=== PATIENT | female | born 1960 | race Caucasian/White ===

== ENCOUNTER 2017-05-03 09:22 | Inpatient (IN) | payer BC ==
[2017-05-03] MEDS ORDERED: REFLEX: PROVENTIL NEB & PulmiCORT NEB~ NEB SCH (10:59)
[2017-05-03 11:42] VITALS: BMI 23.6
[2017-05-03] MEDS ORDERED: PREVNAR 13 IM ONE (11:42)
[2017-05-03] MEDS ORDERED: FLUVIRIN IM ONE (11:42)
[2017-05-03 11:47] LABS: BASOPHILS # (AUTO) 0.1 X10^3/uL (0.0-0.1); BASOPHILS % (AUTO) 0.6 % (0.2-1.0); EOSINOPHILS # (AUTO) 0.1 x10^3/uL (0.0-0.2); EOSINOPHILS % (AUTO) 0.7 % (0.9-2.9); HEMOGLOBIN 13.1 g/dL (12.0-16.0); LYMPHOCYTES # (AUTO) 2.5 X10^3/uL (1.3-2.9); LYMPHOCYTES % (AUTO) 19.6 % (21.0-51.0); MEAN CORPUSCULAR HEMOGLOBIN 30.3 pg (27.0-34.0); MEAN CORPUSCULAR HGB CONC 34.5 g/dL (33.0-35.0); MEAN CORPUSCULAR VOLUME 87.7 fL (80.0-100.0); MEAN PLATELET VOLUME 9.8 fL (7.4-11.0); MONOCYTES # (AUTO) 0.8 x10^3/uL (0.3-0.8); MONOCYTES % (AUTO) 5.8 % (0.0-13.0); NEUTROPHILS # (AUTO) 9.5 x10^3/uL (2.2-4.8); NEUTROPHILS % (AUTO) 73.3 % (42.0-75.0); PLATELET COUNT 230 X10^3/uL (150.0-450.0); RED BLOOD COUNT 4.34 X10^6/uL (3.5-5.4); WHITE BLOOD COUNT 12.9 X10^3/uL (3.6-10.0)
[2017-05-03] MEDS ORDERED: NS 250 ML IV 250 ML IV ONE (12:02)
[2017-05-03] MEDS ORDERED: NS 100 ML IV + SPIKE MINIBAG* 100 ML IV ONE ×3 (12:03→21:08)
[2017-05-03] MEDS: LEVAQUIN PREMIX IV 500 MG 500 MG/100 ML BAG IV SCH (12:05)
[2017-05-03] MEDS: ROBITUSSIN DM PO SCH ×3 (12:05→20:32)
[2017-05-03] MEDS ORDERED: SALINE 3% 15 ML NEB TX ONE (12:06)
[2017-05-03] MEDS: TAMIFLU PO SCH ×2 (12:06→20:32)
[2017-05-03] MEDS: SOLU-Medrol 40 MG VIAL IVP SCH ×3 (12:06→21:25)
[2017-05-03 12:09] LABS: ALANINE AMINOTRANSFERASE 30 Units/L (12-78); ALBUMIN 4.4 g/dL (3.4-5.0); ALKALINE PHOSPHATASE 70 Units/L (46-116); ASPARTATE AMINO TRANSFERASE 33 Units/L (15-37); BLOOD UREA NITROGEN 9 mg/dL (7-18); CARBON DIOXIDE 26.2 mmol/L (21-32); CHLORIDE 103 mmol/L (98-107); SODIUM 140 mmol/L (136-145); TOTAL PROTEIN 8.4 g/dL (6.4-8.2); eGFR BLACK RACES > 60 (>60); eGFR NON BLACK RACES > 60 (>60)
[2017-05-03] MEDS ORDERED: SALINE 3% 15 ML NEB TX NEB ONE (12:15)
[2017-05-03] MEDS: DUONEB 0.5 MG/3 MG NEB SCH ×5 (12:19→20:37)
[2017-05-03] MEDS: ZOSYN VIAL 4.5 GM IV SCH ×3 (13:37→22:36)
[2017-05-03] MEDS ORDERED: XANAX PO PRN (20:35)
[2017-05-03] MEDS: PULMICORT NEB TX 0.5 MG NEB SCH (20:37)
[2017-05-03] MEDS: TUSSIONEX PENNKINETIC SUSP PO PRN (23:43)
[2017-05-04] MEDS ORDERED: NS 100 ML IV + SPIKE MINIBAG* 100 ML IV ONE ×2 (05:00→21:31)
[2017-05-04] MEDS: ZOSYN VIAL 4.5 GM IV SCH ×3 (05:26→21:56)
[2017-05-04 05:35] LABS: BASOPHILS % (AUTO) 0.2 % (0.2-1.0); HEMATOCRIT 35.4 % (36.0-47.0); HEMOGLOBIN 12.2 g/dL (12.0-16.0); LYMPHOCYTES # (AUTO) 1.2 X10^3/uL (1.3-2.9); LYMPHOCYTES % (AUTO) 6.2 % (21.0-51.0); MEAN CORPUSCULAR HEMOGLOBIN 30.2 pg (27.0-34.0); MEAN CORPUSCULAR HGB CONC 34.4 g/dL (33.0-35.0); MEAN CORPUSCULAR VOLUME 87.8 fL (80.0-100.0); MONOCYTES # (AUTO) 0.6 x10^3/uL (0.3-0.8); MONOCYTES % (AUTO) 3.1 % (0.0-13.0); NEUTROPHILS % (AUTO) 90.5 % (42.0-75.0); PLATELET COUNT 251 X10^3/uL (150.0-450.0); RED BLOOD COUNT 4.03 X10^6/uL (3.5-5.4); WHITE BLOOD COUNT 19.9 X10^3/uL (3.6-10.0)
[2017-05-04 05:55] LABS: ALANINE AMINOTRANSFERASE 39 Units/L (12-78); ALBUMIN 3.7 g/dL (3.4-5.0); ALKALINE PHOSPHATASE 62 Units/L (46-116); ASPARTATE AMINO TRANSFERASE 43 Units/L (15-37); BLOOD UREA NITROGEN 11 mg/dL (7-18); CALCIUM 8.9 mg/dL (8.5-10.1); CARBON DIOXIDE 23.3 mmol/L (21-32); CHLORIDE 105 mmol/L (98-107); COR NA(FOR HYPERGLY) 141 mmol/L (136-145); CREATININE 0.96 mg/dL (0.55-1.02); SODIUM 140 mmol/L (136-145); TOTAL PROTEIN 7.4 g/dL (6.4-8.2); eGFR BLACK RACES > 60 (>60); eGFR NON BLACK RACES > 60 (>60)
[2017-05-04 06:42] LABS: BAND NEUTROPHILS % 6 % (0-10); PLATELET MORPHOLOGY COMMENT NORMAL (NORMAL)
[2017-05-04] MEDS: TAMIFLU PO SCH ×2 (08:09→21:56)
[2017-05-04] MEDS: LEVAQUIN PREMIX IV 500 MG 500 MG/100 ML BAG IV SCH (08:09)
[2017-05-04] MEDS: ROBITUSSIN DM PO SCH ×4 (08:10→21:56)
[2017-05-04] MEDS: PULMICORT NEB TX 0.5 MG NEB SCH ×2 (08:32→20:44)
[2017-05-04] MEDS: DUONEB 0.5 MG/3 MG NEB SCH ×4 (08:32→20:44)
[2017-05-04] MEDS: NS 1000 ML 1,000 ML IV SCH ×2 (12:07→21:28)
[2017-05-04] MEDS: TUSSIONEX PENNKINETIC SUSP PO PRN (12:08)
[2017-05-04] MEDS ORDERED: NS 100 ML IV 100 ML IV ONE (13:40)
[2017-05-04] MEDS ORDERED: ZOCOR TAB 20 MG PO SCH (15:00)
[2017-05-04] MEDS: PriLOSEC PO SCH (15:31)
--- NOTE | 2017-05-04 21:10 | DR.UPDATE ---
H&P Update History and Physical Update: WAS SEEN IN THE OFFICE ON 05/03/17. A H&P WAS COMPLETED PRIOR TO ADMISSION. PATIENT HAS BEEN SEEN AND EXAMINED WITH NO CHANGES NOTED TO H&P. Changes noted: NO Yes with the following:
[2017-05-04] MEDS: ZOCOR TAB 20 MG PO SCH (21:56)
[2017-05-04] MEDS: XANAX PO PRN (21:57)
[2017-05-05] MEDS: TUSSIONEX PENNKINETIC SUSP PO PRN ×3 (00:15→20:41)
[2017-05-05] MEDS ORDERED: NS 100 ML IV + SPIKE MINIBAG* 100 ML IV ONE ×3 (05:02→20:47)
[2017-05-05 06:18] LABS: BASOPHILS % (AUTO) 0.1 % (0.2-1.0); EOSINOPHILS % (AUTO) 0.1 % (0.9-2.9); HEMATOCRIT 30.9 % (36.0-47.0); HEMOGLOBIN 10.7 g/dL (12.0-16.0); LYMPHOCYTES # (AUTO) 3.9 X10^3/uL (1.3-2.9); LYMPHOCYTES % (AUTO) 18.6 % (21.0-51.0); MEAN CORPUSCULAR HEMOGLOBIN 30.8 pg (27.0-34.0); MEAN CORPUSCULAR HGB CONC 34.6 g/dL (33.0-35.0); MEAN CORPUSCULAR VOLUME 88.9 fL (80.0-100.0); MEAN PLATELET VOLUME 9.9 fL (7.4-11.0); MONOCYTES % (AUTO) 4.6 % (0.0-13.0); NEUTROPHILS # (AUTO) 16.1 x10^3/uL (2.2-4.8); NEUTROPHILS % (AUTO) 76.6 % (42.0-75.0); PLATELET COUNT 224 X10^3/uL (150.0-450.0); RED BLOOD COUNT 3.47 X10^6/uL (3.5-5.4); RED CELL DISTRIBUTION WIDTH 13.6 % (11.6-16.5)
[2017-05-05 06:19] LABS: ALANINE AMINOTRANSFERASE 37 Units/L (12-78); ALBUMIN 3.1 g/dL (3.4-5.0); ALKALINE PHOSPHATASE 57 Units/L (46-116); ASPARTATE AMINO TRANSFERASE 34 Units/L (15-37); BLOOD UREA NITROGEN 14 mg/dL (7-18); CALCIUM 8.1 mg/dL (8.5-10.1); CARBON DIOXIDE 25.1 mmol/L (21-32); CHLORIDE 109 mmol/L (98-107); COR CA(FOR HYPOALB) 8.8 mg/dL (8.5-10.1); COR NA(FOR HYPERGLY) 142 mmol/L (136-145); SODIUM 142 mmol/L (136-145); TOTAL PROTEIN 6.4 g/dL (6.4-8.2); eGFR BLACK RACES > 60 (>60); eGFR NON BLACK RACES > 60 (>60)
[2017-05-05] MEDS: NS 1000 ML 1,000 ML IV SCH ×3 (06:36→21:44)
[2017-05-05] MEDS: ZOSYN VIAL 4.5 GM IV SCH ×3 (06:36→21:13)
[2017-05-05 06:39] LABS: WHITE BLOOD COUNT 20.9 X10^3/uL (3.6-10.0)
[2017-05-05 06:53] LABS: BAND NEUTROPHILS % 2 % (0-10); PLATELET MORPHOLOGY COMMENT NORMAL (NORMAL)
[2017-05-05] MEDS ORDERED: POTASSIUM CHLORIDE LIQ 20 MEQ UDC PO PRN (07:41)
[2017-05-05] MEDS ORDERED: K-DUR TAB 20 MEQ PO PRN (07:41)
[2017-05-05] MEDS ORDERED: K-RIDER 10 MEQ/NS 100 ML 10 MEQ/100 ML BAG IV PRN (07:41)
[2017-05-05] MEDS ORDERED: K-LYTE EFFERVESCENT PO PRN (07:41)
[2017-05-05] MEDS: PULMICORT NEB TX 0.5 MG NEB SCH ×2 (09:03→20:25)
[2017-05-05] MEDS: DUONEB 0.5 MG/3 MG NEB SCH ×4 (09:03→20:25)
[2017-05-05] MEDS: ASPIRIN EC 81 MG PO SCH (09:52)
[2017-05-05] MEDS: ZESTRIL TAB 10 MG PO SCH (09:52)
[2017-05-05] MEDS: TAMIFLU PO SCH ×2 (09:52→20:40)
[2017-05-05] MEDS: PriLOSEC PO SCH (09:53)
[2017-05-05] MEDS: ROBITUSSIN DM PO SCH ×4 (09:53→20:40)
[2017-05-05] MEDS: LEVAQUIN PREMIX IV 500 MG 500 MG/100 ML BAG IV SCH (09:53)
[2017-05-05] MEDS ORDERED: NS 100 ML IV 100 ML IV ONE (09:54)
[2017-05-05] MEDS: TORADOL 30 MG VIAL IVP SCH ×3 (10:18→21:12)
--- NOTE | 2017-05-05 10:21 | PCM.PROG ---
Progress Note - Progress Note for Day of Date: 05/04/17 ( ) - Subjective Subjective: WAS ADMITTED FOR BRONCHOPNEUMONIA. PATIENT HAS BEEN ON ANTIBIOTICS FOR THE PAST SEVERAL DAYS TO TREAT FOR PNEUMONIA AND INFLUENZA. TODAY, SHE IS ALERT AND ORIENTED, SITTING UP IN BED ON MORNING ROUNDS. PATIENT S IS AT BEDSIDE. SHE CONTINUES WITH COMPLAINTS OF COUGH AND SHORTNESS OF BREATH. SHE ALSO REPORTS SYMPTOMS OF WEAKNESS, AND ACHING ALL OVER. CLEAR, THIN SPUTUM IS NOTED AT BEDSIDE. SHE IS NOTED WEARING OXYGEN AT 2L/MIN. ON EXAMINATION, LUNGS ARE NOTED WITH WHEEZING AND RHONCHI BILATERALLY TO AUSCULTATION. ABDOMEN IS SOFT, ROUND, AND NON-TENDER WITH NORMAL BOWEL SOUNDS NOTED IN ALL QUADRANTS. HER VITAL SIGNS THIS MORNING ARE 98.0-81-81-91%-133/63. A CBC, CMP, AND CHEST XRAY WERE OBTAINED TODAY. ABNORMAL LABS INCLUDE THE FOLLOWING: WBC 19.9, HCT 35.4, GLUCOSE 148, AST 43, ALBUMIN 1.0. CHEST XRAY REPORTS CENTRAL BRONCHITIS, NO LOBAR PNEUMONIA OR PLEAURAL EFFUSION SEEN. BLOOD CULTURES AND SPUTUM CULTURES ARE PENDING. TODAY, WE WILL CONTINUE WITH CURRENT PLAN OF CARE. WE PLAN TO FOLLOW UP WITH AM LABS AND CONTINUE TO MONITOR PATIENT. - Past Medical Family Social History Past Med/Fam/Surg Hx: No changes since H&P Allergies: Allergies No Known Drug Allergies [NKDA] Allergy (Verified 05/03/17 12:39) - Review of Systems ROS: No change since H&P - Vital Signs and I&O's Vital Signs: Temperature 98.0 F Pulse Rate [Right Brachial] 88 Pulse Rate 88 Respiratory Rate 23 Blood Pressure [Left Arm] 120/58 Blood Pressure [Right Arm] 147/65 Blood Pressure 120/58 O2 Sat by Pulse Oximetry 96 Intake and Output: Intake & Output 05/02/17 05/03/17 05/04/17 05/05/17 11:59 11:59 11:59 11:59 Intake Total 2077 273 Balance 2077 273 - Physical Exam Oriented: Normal Eyes: Normal Ear: Normal Nose: Normal Throat: Normal Respiratory: Generalized, Wheezes, Rhonchi Cardiovascular: Normal : Normal Auscultation: Bowel Sounds: Normal Palpation: Normal Tenderness: Normal Skin: Normal Musculoskeletal: Normal Psychiatric: Normal Mood Description: Calm Affect: Normal Speech Pattern: Clear, Appropriate - Laboratory and Diagnostics Result Diagrams: 05/07/17 05:40 05/07/17 05:40 Labs: 05/03/17 12:38 Sputum - Expectorated Sputum Sputum Culture - Final 05/03/17 12:38 Sputum - Expectorated Sputum - Final Laboratory WBC 20.9 X10^3/uL (3.6-10.0) H* 05/05/17 05:00 RBC 3.47 X10^6/uL (3.5-5.4) L 05/05/17 05:00 Hgb 10.7 g/dL (12.0-16.0) L 05/05/17 05:00 Hct 30.9 % (36.0-47.0) L 05/05/17 05:00 MCV 88.9 fL (80.0-100.0) 05/05/17 05:00 MCH 30.8 pg (27.0-34.0) 05/05/17 05:00 MCHC 34.6 g/dL (33.0-35.0) 05/05/17 05:00 RDW 13.6 % (11.6-16.5) 05/05/17 05:00 Plt Count 224 X10^3/uL (150.0-450.0) 05/05/17 05:00 Plt Count Comment Adequate (ADEQUATE) 05/05/17 05:00 MPV 9.9 fL (7.4-11.0) 05/05/17 05:00 Neut % 76.6 % (42.0-75.0) H 05/05/17 05:00 Lymph % 18.6 % (21.0-51.0) L 05/05/17 05:00 [place] % 4.6 % (0.0-13.0) 05/05/17 05:00 Eos % 0.1 % (0.9-2.9) L 05/05/17 05:00 Baso % 0.1 % (0.2-1.0) L 05/05/17 05:00 Neut # 16.1 x10^3/uL (2.2-4.8) H 05/05/17 05:00 Lymph # 3.9 X10^3/uL (1.3-2.9) H 05/05/17 05:00 [place] # 1.0 x10^3/uL (0.3-0.8) H 05/05/17 05:00 Eos # 0.0 x10^3/uL (0.0-0.2) 05/05/17 05:00 Baso # 0.0 X10^3/uL (0.0-0.1) 05/05/17 05:00 Absolute Nucleated RBC 0.0 /100WBC 05/05/17 05:00 Total Counted 100 05/05/17 05:00 Neutrophils % (Manual) 66 % (39-76) 05/05/17 05:00 Band Neutrophils % 2 % (0-10) 05/05/17 05:00 Lymphocytes % (Manual) 20 % (13-43) 05/05/17 05:00 Monocytes % (Manual) 8 % (4-9) 05/05/17 05:00 Eosinophils % (Manual) 4 % (0-6) 05/05/17 05:00 Plt Morphology Comment Normal (NORMAL) 05/05/17 05:00 RBC Morphology Normal (NORMAL) 05/05/17 05:00 Sodium 142 mmol/L (136-145) 05/05/17 05:00 Corrected Sodium 142 mmol/L (136-145) 05/05/17 05:00 Potassium 3.4 mmol/L (3.5-5.1) L 05/05/17 05:00 Chloride 109 mmol/L (98-107) H 05/05/17 05:00 Carbon Dioxide 25.1 mmol/L (21-32) 05/05/17 05:00 BUN 14 mg/dL (7-18) 05/05/17 05:00 Creatinine 0.80 mg/dL (0.55-1.02) 05/05/17 05:00 Est GFR (MDRD) Af Amer > 60 (>60) 05/05/17 05:00 Est GFR (MDRD) Non-Af > 60 (>60) 05/05/17 05:00 Glucose 114 mg/dL (65-99) H 05/05/17 05:00 Calcium 8.1 mg/dL (8.5-10.1) L 05/05/17 05:00 Corrected Calcium 8.8 mg/dL (8.5-10.1) 05/05/17 05:00 Total Bilirubin 0.10 mg/dL (0.2-1.0) L 05/05/17 05:00 AST 34 Units/L (15-37) 05/05/17 05:00 ALT 37 Units/L (12-78) 05/05/17 05:00 Alkaline Phosphatase 57 Units/L (46-116) 05/05/17 05:00 Total Protein 6.4 g/dL (6.4-8.2) 05/05/17 05:00 Albumin 3.1 g/dL (3.4-5.0) L 05/05/17 05:00 Globulin 3.3 g/dL (2.5-4.5) 05/05/17 05:00 Albumin/Globulin Ratio 0.9 Ratio (1.1-2.1) L 05/05/17 05:00 - Plan (1) Bronchopneumonia Status: Acute Plan: START SOLU-MEDROL 80MG IV Q8H, CONTINUE LEVAQUIN 500MG IV DAILY, CONTINUE ZOSYN 4.5GM IV Q8H, CONTINUE TUSSIONEX, CONTINUE NEB TX, CONTINUE SUPPLEMENTAL OXYGEN, CONTINUE TO MONITOR (2) Anxiety Status: Chronic Plan: CONTINUE XANAX, CONTINUE TO MONITOR (3) GERD (gastroesophageal reflux disease) Status: Chronic Qualifiers: Esophagitis presence: esophagitis presence not specified Qualified Code(s) : K21.9 - Gastro-esophageal reflux disease without esophagitis Plan: CONTINUE PRILOSEC, CONTINUE TO MONITOR (4) Hyperlipidemia Status: Chronic Qualifiers: Hyperlipidemia type: mixed hyperlipidemia Qualified Code(s): E78.2 - Mixed hyperlipidemia Plan: CONTINUE ZOCOR, CONTINUE TO MONITOR (5) Hypertension Status: Chronic Qualifiers: Hypertension type: essential hypertension Qualified Code(s): I10 - Essential (primary) hypertension Plan: CONTINUE LISINOPRIL, CONTINUE TO MONITOR
[2017-05-05] MEDS: ZOCOR TAB 20 MG PO SCH (20:40)
[2017-05-05] MEDS: XANAX PO PRN (20:41)
[2017-05-06] MEDS ORDERED: NS 100 ML IV + SPIKE MINIBAG* 100 ML IV ONE ×3 (03:15→19:42)
[2017-05-06] MEDS: NS 1000 ML 1,000 ML IV SCH ×4 (03:34→21:15)
[2017-05-06] MEDS: TORADOL 30 MG VIAL IVP SCH ×4 (03:35→21:15)
[2017-05-06] MEDS: ZOSYN VIAL 4.5 GM IV SCH ×3 (06:02→21:15)
[2017-05-06 06:05] LABS: BASOPHILS # (AUTO) 0.1 X10^3/uL (0.0-0.1); BASOPHILS % (AUTO) 0.4 % (0.2-1.0); EOSINOPHILS # (AUTO) 0.2 x10^3/uL (0.0-0.2); EOSINOPHILS % (AUTO) 1.6 % (0.9-2.9); HEMATOCRIT 31.3 % (36.0-47.0); HEMOGLOBIN 10.8 g/dL (12.0-16.0); LYMPHOCYTES # (AUTO) 4.3 X10^3/uL (1.3-2.9); LYMPHOCYTES % (AUTO) 29.5 % (21.0-51.0); MEAN CORPUSCULAR HEMOGLOBIN 30.5 pg (27.0-34.0); MEAN CORPUSCULAR HGB CONC 34.6 g/dL (33.0-35.0); MEAN CORPUSCULAR VOLUME 88.2 fL (80.0-100.0); MEAN PLATELET VOLUME 9.5 fL (7.4-11.0); MONOCYTES # (AUTO) 0.8 x10^3/uL (0.3-0.8); MONOCYTES % (AUTO) 5.6 % (0.0-13.0); NEUTROPHILS # (AUTO) 9.2 x10^3/uL (2.2-4.8); NEUTROPHILS % (AUTO) 62.9 % (42.0-75.0); PLATELET COUNT 242 X10^3/uL (150.0-450.0); RED BLOOD COUNT 3.55 X10^6/uL (3.5-5.4); RED CELL DISTRIBUTION WIDTH 13.7 % (11.6-16.5); WHITE BLOOD COUNT 14.6 X10^3/uL (3.6-10.0)
[2017-05-06 06:15] LABS: ALANINE AMINOTRANSFERASE 41 Units/L (12-78); ALBUMIN 3.1 g/dL (3.4-5.0); ALKALINE PHOSPHATASE 49 Units/L (46-116); ASPARTATE AMINO TRANSFERASE 38 Units/L (15-37); BLOOD UREA NITROGEN 11 mg/dL (7-18); CALCIUM 8.3 mg/dL (8.5-10.1); CARBON DIOXIDE 29.3 mmol/L (21-32); CHLORIDE 107 mmol/L (98-107); CREATININE 0.84 mg/dL (0.55-1.02); SODIUM 142 mmol/L (136-145); TOTAL PROTEIN 6.5 g/dL (6.4-8.2); eGFR BLACK RACES > 60 (>60); eGFR NON BLACK RACES > 60 (>60)
[2017-05-06] MEDS: DUONEB 0.5 MG/3 MG NEB SCH ×4 (08:59→20:08)
[2017-05-06] MEDS: PULMICORT NEB TX 0.5 MG NEB SCH ×2 (08:59→20:08)
[2017-05-06] MEDS: ASPIRIN EC 81 MG PO SCH (09:14)
[2017-05-06] MEDS: ZESTRIL TAB 10 MG PO SCH (09:15)
[2017-05-06] MEDS: PriLOSEC PO SCH (09:15)
[2017-05-06] MEDS: LEVAQUIN PREMIX IV 500 MG 500 MG/100 ML BAG IV SCH (09:15)
[2017-05-06] MEDS: ROBITUSSIN DM PO SCH ×4 (09:15→21:14)
[2017-05-06] MEDS: TAMIFLU PO SCH ×2 (09:15→21:15)
[2017-05-06] MEDS: SOLU-Medrol 40 MG VIAL IVP SCH ×3 (09:21→21:15)
[2017-05-06] MEDS: TUSSIONEX PENNKINETIC SUSP PO PRN (12:56)
[2017-05-06] MEDS: ZOCOR TAB 20 MG PO SCH (21:15)
[2017-05-06] MEDS: XANAX PO PRN (21:16)
--- NOTE | 2017-05-06 22:00 | PCM.PROG ---
Progress Note - Progress Note for Day of Date: 05/05/17 - Subjective Subjective: WAS ADMITTED FOR BRONCHOPNEUMONIA. TODAY, SHE IS ALERT AND ORIENTED, SITTING UP IN BED ON MORNING ROUNDS. PATIENTS IS AT BEDSIDE. SHE CONTINUES WITH COMPLAINTS OF COUGH AND SHORTNESS OF BREATH. SHE IS ALSO NOTED WITH COMPLAINTS OF CHEST AND RIB PAIN WHEN COUGHING. PATIENT REPORTS THAT WHEN SHE COUGHS, SHE HAS A STABBING SENSATION TO THE CHEST AND RIBS. SHE IS NOTED WEARING OXYGEN AT 2L/MIN. SHE IS ALSO NOTED ON TELEMETRY. SINUS RHYTHM NOTED WITH HEART RATE IN THE 80S. ON EXAMINATION, LUNGS CONTINUE WITH WHEEZING AND RHONCHI BILATERALLY TO AUSCULTATION. ABDOMEN IS SOFT, ROUND, AND NON-TENDER WITH NORMAL BOWEL SOUNDS NOTED IN ALL QUADRANTS. HER VITAL SIGNS THIS MORNING ARE 98.0-86-30-97%-135/63. A CBC, CMP, AND CHEST XRAY WERE OBTAINED TODAY. ABNORMAL LABS INCLUDE THE FOLLOWING: WBC CRITICAL HIGH 20.9, RBC 3.47, HGB 10.7 , HCT 30.9, POTASSIUM 3.4, GLUCOSE 114, CALCIUM 8.1, ALBUMIN 3.1. CHEST XRAY WAS OBTAINED AND A READING IS PENDING. PRELIMINARY SPUTUM CULTURES REPORT NORMAL MARY. BLOOD CULTURES REPORT NO GROWTH. TODAY, WE WILL OBTAIN A CT OF THE CHEST WITH CONTRAST. WE WILL START TORADOL 30MG IV Q6H AND CONTINUE ANTIBIOTICS TO TREAT PLEURASY. OTHERWISE, WE WILL CONTINUE WITH CURRENT PLAN OF CARE. WE PLAN TO FOLLOW UP WITH AM LABS AND CONTINUE TO MONITOR PATIENT. - Past Medical Family Social History Past Med/Fam/Surg Hx: No changes since H&P Allergies: Allergies No Known Drug Allergies [NKDA] Allergy (Verified 05/03/17 12:39) - Review of Systems ROS: No change since H&P - Vital Signs and I&O's Vital Signs: Temperature 98.1 F Pulse Rate [Right Brachial] 99 Pulse Rate 88 Respiratory Rate 20 Blood Pressure [Left Arm] 120/58 Blood Pressure [Right Arm] 170/72 Blood Pressure 120/58 O2 Sat by Pulse Oximetry 97 Intake and Output: Intake & Output 05/04/17 05/05/17 05/06/17 05/07/17 11:59 11:59 11:59 11:59 Intake Total 2077 2733 2400 1825 Balance 2077 2733 2400 1825 - Physical Exam Oriented: Normal Eyes: Normal Ear: Normal Nose: Normal Throat: Normal Respiratory: Generalized, Wheezes, Rhonchi Cardiovascular: Normal : Normal Auscultation: Bowel Sounds: Normal Palpation: Normal Tenderness: Normal Skin: Normal Musculoskeletal: Normal Psychiatric: Normal Mood Description: Calm Affect: Normal Speech Pattern: Clear, Appropriate - Laboratory and Diagnostics Result Diagrams: 05/07/17 05:40 05/07/17 05:40 Labs: 05/03/17 11:35 Blood Blood Culture - Preliminary 05/03/17 11:20 Blood Blood Culture - Preliminary 05/03/17 12:38 Sputum - Expectorated Sputum Sputum Culture - Final 05/03/17 12:38 Sputum - Expectorated Sputum - Final Laboratory WBC 14.6 X10^3/uL (3.6-10.0) H 05/06/17 05:14 RBC 3.55 X10^6/uL (3.5-5.4) 05/06/17 05:14 Hgb 10.8 g/dL (12.0-16.0) L 05/06/17 05:14 Hct 31.3 % (36.0-47.0) L 05/06/17 05:14 MCV 88.2 fL (80.0-100.0) 05/06/17 05:14 MCH 30.5 pg (27.0-34.0) 05/06/17 05:14 MCHC 34.6 g/dL (33.0-35.0) 05/06/17 05:14 RDW 13.7 % (11.6-16.5) 05/06/17 05:14 Plt Count 242 X10^3/uL (150.0-450.0) 05/06/17 05:14 Plt Count Comment Adequate (ADEQUATE) 05/05/17 05:00 MPV 9.5 fL (7.4-11.0) 05/06/17 05:14 Neut % 62.9 % (42.0-75.0) 05/06/17 05:14 Lymph % 29.5 % (21.0-51.0) 05/06/17 05:14 [place] % 5.6 % (0.0-13.0) 05/06/17 05:14 Eos % 1.6 % (0.9-2.9) 05/06/17 05:14 Baso % 0.4 % (0.2-1.0) 05/06/17 05:14 Neut # 9.2 x10^3/uL (2.2-4.8) H 05/06/17 05:14 Lymph # 4.3 X10^3/uL (1.3-2.9) H 05/06/17 05:14 [place] # 0.8 x10^3/uL (0.3-0.8) 05/06/17 05:14 Eos # 0.2 x10^3/uL (0.0-0.2) 05/06/17 05:14 Baso # 0.1 X10^3/uL (0.0-0.1) 05/06/17 05:14 Absolute Nucleated RBC 0.0 /100WBC 05/06/17 05:14 Total Counted 100 05/05/17 05:00 Neutrophils % (Manual) 66 % (39-76) 05/05/17 05:00 Band Neutrophils % 2 % (0-10) 05/05/17 05:00 Lymphocytes % (Manual) 20 % (13-43) 05/05/17 05:00 Monocytes % (Manual) 8 % (4-9) 05/05/17 05:00 Eosinophils % (Manual) 4 % (0-6) 05/05/17 05:00 Plt Morphology Comment Normal (NORMAL) 05/05/17 05:00 RBC Morphology Normal (NORMAL) 05/05/17 05:00 Sodium 142 mmol/L (136-145) 05/06/17 05:14 Corrected Sodium TNP 05/06/17 05:14 Potassium 4.3 mmol/L (3.5-5.1) 05/06/17 05:14 Chloride 107 mmol/L (98-107) 05/06/17 05:14 Carbon Dioxide 29.3 mmol/L (21-32) 05/06/17 05:14 BUN 11 mg/dL (7-18) 05/06/17 05:14 Creatinine 0.84 mg/dL (0.55-1.02) 05/06/17 05:14 Est GFR (MDRD) Af Amer > 60 (>60) 05/06/17 05:14 Est GFR (MDRD) Non-Af > 60 (>60) 05/06/17 05:14 Glucose 93 mg/dL (65-99) 05/06/17 05:14 Calcium 8.3 mg/dL (8.5-10.1) L 05/06/17 05:14 Corrected Calcium 9.0 mg/dL (8.5-10.1) 05/06/17 05:14 Total Bilirubin 0.20 mg/dL (0.2-1.0) 05/06/17 05:14 AST 38 Units/L (15-37) H 05/06/17 05:14 ALT 41 Units/L (12-78) 05/06/17 05:14 Alkaline Phosphatase 49 Units/L (46-116) 05/06/17 05:14 Total Protein 6.5 g/dL (6.4-8.2) 05/06/17 05:14 Albumin 3.1 g/dL (3.4-5.0) L 05/06/17 05:14 Globulin 3.4 g/dL (2.5-4.5) 05/06/17 05:14 Albumin/Globulin Ratio 0.9 Ratio (1.1-2.1) L 05/06/17 05:14 - Plan (1) Bronchopneumonia Status: Acute Plan: CONTINUE LEVAQUIN 500MG IV DAILY, CONTINUE ZOSYN 4.5GM IV Q8H, CONTINUE TUSSIONEX, CONTINUE NEB TX, CONTINUE SUPPLEMENTAL OXYGEN, CONTINUE TO MONITOR (2) Pleurisy Status: Acute Plan: CONTINUE FORTAZ AND LEVAQUIN IV, TORADOL 30MG IV Q6H, CONTINUE TO MONITOR (3) Anxiety Status: Chronic Plan: CONTINUE XANAX, CONTINUE TO MONITOR (4) GERD (gastroesophageal reflux disease) Status: Chronic Qualifiers: Esophagitis presence: esophagitis presence not specified Qualified Code(s) : K21.9 - Gastro-esophageal reflux disease without esophagitis Plan: CONTINUE PRILOSEC, CONTINUE TO MONITOR (5) Hyperlipidemia Status: Chronic Qualifiers: Hyperlipidemia type: mixed hyperlipidemia Qualified Code(s): E78.2 - Mixed hyperlipidemia Plan: CONTINUE ZOCOR, CONTINUE TO MONITOR (6) Hypertension Status: Chronic Qualifiers: Hypertension type: essential hypertension Qualified Code(s): I10 - Essential (primary) hypertension Plan: CONTINUE LISINOPRIL, CONTINUE TO MONITOR
[2017-05-07] MEDS: TUSSIONEX PENNKINETIC SUSP PO PRN ×2 (01:00→05:04)
[2017-05-07] MEDS: TORADOL 30 MG VIAL IVP SCH ×2 (05:02→06:16)
[2017-05-07] MEDS: NS 1000 ML 1,000 ML IV SCH (05:03)
[2017-05-07] MEDS: ZOSYN VIAL 4.5 GM IV SCH (05:04)
[2017-05-07] MEDS: SOLU-Medrol 40 MG VIAL IVP SCH (05:04)
[2017-05-07] MEDS ORDERED: NS 100 ML IV + SPIKE MINIBAG* 100 ML IV ONE (05:07)
[2017-05-07 06:09] LABS: BASOPHILS % (AUTO) 0.2 % (0.2-1.0); HEMATOCRIT 34.4 % (36.0-47.0); HEMOGLOBIN 11.8 g/dL (12.0-16.0); LYMPHOCYTES # (AUTO) 1.6 X10^3/uL (1.3-2.9); LYMPHOCYTES % (AUTO) 10.9 % (21.0-51.0); MEAN CORPUSCULAR HEMOGLOBIN 30.2 pg (27.0-34.0); MEAN CORPUSCULAR HGB CONC 34.4 g/dL (33.0-35.0); MEAN CORPUSCULAR VOLUME 87.8 fL (80.0-100.0); MEAN PLATELET VOLUME 9.3 fL (7.4-11.0); MONOCYTES # (AUTO) 0.4 x10^3/uL (0.3-0.8); MONOCYTES % (AUTO) 2.9 % (0.0-13.0); NEUTROPHILS # (AUTO) 12.6 x10^3/uL (2.2-4.8); PLATELET COUNT 298 X10^3/uL (150.0-450.0); RED BLOOD COUNT 3.92 X10^6/uL (3.5-5.4); RED CELL DISTRIBUTION WIDTH 14.1 % (11.6-16.5); WHITE BLOOD COUNT 14.6 X10^3/uL (3.6-10.0)
[2017-05-07 06:16] VITALS: BP 160/73
[2017-05-07 06:42] LABS: ALANINE AMINOTRANSFERASE 141 Units/L (12-78); ALBUMIN 3.3 g/dL (3.4-5.0); ALKALINE PHOSPHATASE 71 Units/L (46-116); ASPARTATE AMINO TRANSFERASE 94 Units/L (15-37); BLOOD UREA NITROGEN 14 mg/dL (7-18); CARBON DIOXIDE 27.3 mmol/L (21-32); CHLORIDE 106 mmol/L (98-107); COR CA(FOR HYPOALB) 9.6 mg/dL (8.5-10.1); COR NA(FOR HYPERGLY) 143 mmol/L (136-145); CREATININE 0.72 mg/dL (0.55-1.02); SODIUM 142 mmol/L (136-145); TOTAL PROTEIN 7.1 g/dL (6.4-8.2); eGFR BLACK RACES > 60 (>60); eGFR NON BLACK RACES > 60 (>60)
[2017-05-07] MEDS: DUONEB 0.5 MG/3 MG NEB SCH (09:02)
[2017-05-07] MEDS: PULMICORT NEB TX 0.5 MG NEB SCH (09:02)
[2017-05-07] MEDS: ASPIRIN EC 81 MG PO SCH (09:18)
[2017-05-07] MEDS: LEVAQUIN PREMIX IV 500 MG 500 MG/100 ML BAG IV SCH (09:18)
[2017-05-07] MEDS: ZESTRIL TAB 10 MG PO SCH (09:18)
[2017-05-07] MEDS: TAMIFLU PO SCH (09:18)
[2017-05-07] MEDS: ROBITUSSIN DM PO SCH (09:18)
[2017-05-07] MEDS: PriLOSEC PO SCH (09:18)
--- NOTE | 2017-05-08 11:43 | PCM.PROG ---
Progress Note - Progress Note for Day of Date: 05/06/17 - Subjective Subjective: WAS ADMITTED FOR BRONCHOPNEUMONIA. TODAY, SHE IS ALERT AND ORIENTED, SITTING UP IN BED ON MORNING ROUNDS. PATIENTS IS AT BEDSIDE. SHE CONTINUES WITH COMPLAINTS OF COUGH AND SHORTNESS OF BREATH. SHE REPORTS THAT SHARP PAIN TO BILATERAL RIBS HAS IMPROVED SINCE RECEIVING THE TORADOL. SHE IS NOTED WEARING OXYGEN AT 2L/MIN. SHE IS ON TELEMETRY. SINUS RHYTHM NOTED WITH HEARTRATE IN THE 80S. ON EXAMINATION, LUNGS ARE CONTINUE WITH WHEEZING BILATERALLY TO AUSCULTATION. ABDOMEN IS SOFT, ROUND, AND NON-TENDER WITH NORMAL BOWEL SOUNDS NOTED IN ALL QUADRANTS. HER VITAL SIGNS THIS MORNING ARE 98.3-84-17 -98%-179/79. A CBC AND CMP WERE OBTAINED TODAY. ABNORMAL LABS INCLUDE THE FOLLOWING: WBC 14.6-HGB 10.8, HCT 31.3, CALCIUM 8.3, AST 38, ALBUMIN 3.1. YESTERDAY, WE OBTAINED A CT OF THE CHEST WITH CONTRAST. IT REPORTED BILATERAL PERIBRONCHIAL THICKENING WITH A FEW TREE IN BUD OPACITIES WITH MULTIPLE SCATTERED AREAS OF GROUND-GLASS ALVEOLAR OPACITIES MOST CONSISTENT WITH ACUTE INFECTIOUS/INFLAMMATORY INFILTRATES LIKELY REPRESENTING CELLULAR BRONCHILITIS IN THE SETTING OF AN ATYPICAL/VIRAL PNEUMONIA. SHODDY MEDIASTINAL AND BORDERLINE ENLARGED RIGHT HILAR LYMPH NODES LIKELY REACTIVE TO THE ABOVE DESCRIBED ACUTE INFECTIONS/INFLAMMATORY PROCESS. SPUTUM CULTURES REPORT GROWTH OF NORMAL MARY. BLOOD CULTURES REPORT NO GROWTH. TODAY, WE WILL START SOLU- MEDROL 80MG IV Q8H. OTHERWISE, WE WILL CONTINUE WITH CURRENT PLAN OF CARE. WE PLAN TO FOLLOW UP WITH AM LABS, CHEST XRAY, AND CONTINUE TO MONITOR PATIENT. - Past Medical Family Social History Past Med/Fam/Surg Hx: No changes since H&P Allergies: Allergies No Known Drug Allergies [NKDA] Allergy (Verified 05/03/17 12:39) - Review of Systems ROS: No change since H&P - Vital Signs and I&O's Vital Signs: Temperature 98.4 F Pulse Rate [Right Brachial] 83 Pulse Rate 101 Respiratory Rate 24 Blood Pressure [Left Arm] 120/58 Blood Pressure [Right Arm] 160/73 Blood Pressure 120/58 O2 Sat by Pulse Oximetry 98 Intake and Output: Intake & Output 05/05/17 05/06/17 05/07/17 05/08/17 11:59 11:59 11:59 11:59 Intake Total 2733 2400 3390 Balance 2733 2400 3390 - Physical Exam Oriented: Normal Eyes: Normal Ear: Normal Nose: Normal Throat: Normal Respiratory: Generalized, Wheezes, Rhonchi Cardiovascular: Normal : Normal Auscultation: Bowel Sounds: Normal Palpation: Normal Tenderness: Normal Skin: Normal Musculoskeletal: Normal Psychiatric: Normal Mood Description: Calm Affect: Normal Speech Pattern: Clear, Appropriate - Laboratory and Diagnostics Result Diagrams: 05/07/17 05:40 05/07/17 05:40 Labs: 05/03/17 11:35 Blood Blood Culture - Preliminary 05/03/17 11:20 Blood Blood Culture - Preliminary 05/03/17 12:38 Sputum - Expectorated Sputum Sputum Culture - Final 05/03/17 12:38 Sputum - Expectorated Sputum - Final Laboratory WBC 14.6 X10^3/uL (3.6-10.0) H 05/07/17 05:40 RBC 3.92 X10^6/uL (3.5-5.4) 05/07/17 05:40 Hgb 11.8 g/dL (12.0-16.0) L 05/07/17 05:40 Hct 34.4 % (36.0-47.0) L 05/07/17 05:40 MCV 87.8 fL (80.0-100.0) 05/07/17 05:40 MCH 30.2 pg (27.0-34.0) 05/07/17 05:40 MCHC 34.4 g/dL (33.0-35.0) 05/07/17 05:40 RDW 14.1 % (11.6-16.5) 05/07/17 05:40 Plt Count 298 X10^3/uL (150.0-450.0) 05/07/17 05:40 Plt Count Comment Adequate (ADEQUATE) 05/05/17 05:00 MPV 9.3 fL (7.4-11.0) 05/07/17 05:40 Neut % 86.0 % (42.0-75.0) H 05/07/17 05:40 Lymph % 10.9 % (21.0-51.0) L 05/07/17 05:40 [place] % 2.9 % (0.0-13.0) 05/07/17 05:40 Eos % 0.0 % (0.9-2.9) L 05/07/17 05:40 Baso % 0.2 % (0.2-1.0) 05/07/17 05:40 Neut # 12.6 x10^3/uL (2.2-4.8) H 05/07/17 05:40 Lymph # 1.6 X10^3/uL (1.3-2.9) 05/07/17 05:40 [place] # 0.4 x10^3/uL (0.3-0.8) 05/07/17 05:40 Eos # 0.0 x10^3/uL (0.0-0.2) 05/07/17 05:40 Baso # 0.0 X10^3/uL (0.0-0.1) 05/07/17 05:40 Absolute Nucleated RBC 0.0 /100WBC 05/07/17 05:40 Total Counted 100 05/05/17 05:00 Neutrophils % (Manual) 66 % (39-76) 05/05/17 05:00 Band Neutrophils % 2 % (0-10) 05/05/17 05:00 Lymphocytes % (Manual) 20 % (13-43) 05/05/17 05:00 Monocytes % (Manual) 8 % (4-9) 05/05/17 05:00 Eosinophils % (Manual) 4 % (0-6) 05/05/17 05:00 Plt Morphology Comment Normal (NORMAL) 05/05/17 05:00 RBC Morphology Normal (NORMAL) 05/05/17 05:00 Sodium 142 mmol/L (136-145) 05/07/17 05:40 Corrected Sodium 143 mmol/L (136-145) 05/07/17 05:40 Potassium 4.0 mmol/L (3.5-5.1) 05/07/17 05:40 Chloride 106 mmol/L (98-107) 05/07/17 05:40 Carbon Dioxide 27.3 mmol/L (21-32) 05/07/17 05:40 BUN 14 mg/dL (7-18) 05/07/17 05:40 Creatinine 0.72 mg/dL (0.55-1.02) 05/07/17 05:40 Est GFR (MDRD) Af Amer > 60 (>60) 05/07/17 05:40 Est GFR (MDRD) Non-Af > 60 (>60) 05/07/17 05:40 Glucose 158 mg/dL (65-99) H 05/07/17 05:40 Calcium 9.0 mg/dL (8.5-10.1) 05/07/17 05:40 Corrected Calcium 9.6 mg/dL (8.5-10.1) 05/07/17 05:40 Total Bilirubin 0.30 mg/dL (0.2-1.0) 05/07/17 05:40 AST 94 Units/L (15-37) H 05/07/17 05:40 ALT 141 Units/L (12-78) H 05/07/17 05:40 Alkaline Phosphatase 71 Units/L (46-116) 05/07/17 05:40 Total Protein 7.1 g/dL (6.4-8.2) 05/07/17 05:40 Albumin 3.3 g/dL (3.4-5.0) L 05/07/17 05:40 Globulin 3.8 g/dL (2.5-4.5) 05/07/17 05:40 Albumin/Globulin Ratio 0.9 Ratio (1.1-2.1) L 05/07/17 05:40 - Plan (1) Bronchopneumonia Status: Acute Plan: START SOLU-MEDROL 80MG IV Q8H, CONTINUE LEVAQUIN 500MG IV DAILY, CONTINUE ZOSYN 4.5GM IV Q8H, CONTINUE TUSSIONEX, CONTINUE NEB TX, CONTINUE SUPPLEMENTAL OXYGEN, CONTINUE TO MONITOR (2) Pleurisy Status: Acute Plan: CONTINUE FORTAZ AND LEVAQUIN IV, TORADOL 30MG IV Q6H, CONTINUE TO MONITOR (3) Anxiety Status: Chronic Plan: CONTINUE XANAX, CONTINUE TO MONITOR (4) GERD (gastroesophageal reflux disease) Status: Chronic Qualifiers: Esophagitis presence: esophagitis presence not specified Qualified Code(s) : K21.9 - Gastro-esophageal reflux disease without esophagitis Plan: CONTINUE PRILOSEC, CONTINUE TO MONITOR (5) Hyperlipidemia Status: Chronic Qualifiers: Hyperlipidemia type: mixed hyperlipidemia Qualified Code(s): E78.2 - Mixed hyperlipidemia Plan: CONTINUE ZOCOR, CONTINUE TO MONITOR (6) Hypertension Status: Chronic Qualifiers: Hypertension type: essential hypertension Qualified Code(s): I10 - Essential (primary) hypertension Plan: CONTINUE LISINOPRIL, CONTINUE TO MONITOR
== END 2017-05-07 10:15 | disposition home or self-care (01) | DRG 195 ==
LOC: UNDOADMIN 09:22 → ICU 09:22
PROVIDERS: ADMIT Internal Medicine; ATTEND Internal Medicine
DX: J18.0 Bronchopneumonia, unspecified organism (principal); R09.1 Pleurisy; F41.9 Anxiety disorder, unspecified; K21.9 Gastro-esophageal reflux disease without esophagitis; E78.5 Hyperlipidemia, unspecified; I10 Essential (primary) hypertension; Z66 Do not resuscitate
CPT/HCPCS: 36415; 71010; 71020; 71260; 80053; 85025; 87040; 87070; 87205; 94640; A4222; G9035; J1885; J1956; J2543; J2920; J7620; J7626

== ENCOUNTER 2019-09-24 10:58 | Observation (INO) ==
[2019-09-24] MEDS ORDERED: TUSSIONEX PENNKINETIC SUSP PO PRN (14:48)
[2019-09-24] MEDS ORDERED: NS 1/2 1000 ML IV 1,000 ML IV ONE ×2 (15:20→15:21)
[2019-09-24 15:23] LABS: BASOPHILS # (AUTO) 0.1 X10^3/uL (0.0-0.1); BASOPHILS % (AUTO) 0.8 % (0.2-1.0); EOSINOPHILS # (AUTO) 0.1 x10^3/uL (0.0-0.2); HEMATOCRIT 42.6 % (36.0-47.0); HEMOGLOBIN 14.6 g/dL (12.0-16.0); LYMPHOCYTES # (AUTO) 3.8 X10^3/uL (1.3-2.9); LYMPHOCYTES % (AUTO) 38.2 % (21.0-51.0); MEAN CORPUSCULAR HEMOGLOBIN 29.9 pg (27.0-34.0); MEAN CORPUSCULAR HGB CONC 34.2 g/dL (33.0-35.0); MEAN CORPUSCULAR VOLUME 87.6 fL (80.0-100.0); MEAN PLATELET VOLUME 8.7 fL (7.4-11.0); MONOCYTES # (AUTO) 0.5 x10^3/uL (0.3-0.8); MONOCYTES % (AUTO) 5.2 % (0.0-13.0); NEUTROPHILS # (AUTO) 5.5 x10^3/uL (2.2-4.8); NEUTROPHILS % (AUTO) 54.8 % (42.0-75.0); PLATELET COUNT 281 X10^3/uL (150.0-450.0); RED BLOOD COUNT 4.87 X10^6/uL (3.5-5.4); RED CELL DISTRIBUTION WIDTH 14.6 % (11.6-16.5)
[2019-09-24 15:39] LABS: ALANINE AMINOTRANSFERASE 34 Units/L (12-78); ALBUMIN 4.6 g/dL (3.4-5.0); ALKALINE PHOSPHATASE 79 Units/L (46-116); ASPARTATE AMINO TRANSFERASE 24 Units/L (15-37); BLOOD UREA NITROGEN 16 mg/dL (7-18); CARBON DIOXIDE 28.6 mmol/L (21-32); CHLORIDE 99 mmol/L (98-107); CREATININE 0.79 mg/dL (0.55-1.02); SODIUM 138 mmol/L (136-145); TOTAL PROTEIN 8.8 g/dL (6.4-8.2); eGFR NON BLACK RACES > 60 (>60)
[2019-09-24] MEDS: ROBITUSSIN DM PO SCH ×3 (15:44→22:03)
[2019-09-24] MEDS: LEVAQUIN PREMIX IV 750 MG 750 MG/150 ML BAG IV SCH (15:44)
[2019-09-24] MEDS: NS 1/2 1000 ML IV 1,000 ML IV SCH (15:44)
[2019-09-24 15:45] LABS: CKMB % 2.8 % (<4); CREATINE KINASE 86 Units/L (26-192); CREATINE KINASE MB 2.4 ng/mL (0-4.0); TROPONIN I < 0.02 ng/mL (0-1.5)
[2019-09-24] MEDS: VSL#3 PO SCH (16:04)
[2019-09-24] MEDS: SOLU-Medrol 40 MG VIAL IVP SCH ×2 (16:05→23:08)
[2019-09-24] MEDS ORDERED: NS 250 ML IV 250 ML IV ONE (16:12)
[2019-09-24 16:49] VITALS: BMI 23.0
[2019-09-24] MEDS: DUONEB 0.5 MG/3 MG (3 mL) NEB SCH ×2 (16:53→20:05)
--- NOTE | 2019-09-24 16:55 | RAD ---
HISTORYPNEUMONIASTUDYCHEST, PA/LAT ADULTCOMPARISONNoneFINDINGSThe heart is normal. The pulmonary vessels are normal. The lungs are mildly hyperinflated and emphysematous. No consolidation or effusion is seen. The bones are intact.IMPRESSIONCOPD with no acute cardiopulmonary abnormality.Electronically signed by: MODESTO GARCÍA (Sep 24, 2019 16:54:48)
--- NOTE | 2019-09-24 17:14 | CT ---
HISTORYSOB, R/O PESTUDYCTA [id number] axial images of the chest were obtained from the thoracic inlet to the upper abdomen after the administration of IV contrast. Coronal and sagittal 3D MIP earnest nstructions were performed. Dose reduction techniques including Automated Exposure Control (AEC) and adjustment of mA and kV were utilized.FINDINGSThere is moderate calcified plaque throughout the aorta which is well opacified and normal caliber with no filling defect. The pulmonary arteries are only m ildly opacified with no obvious filling defect or vessel cutoff seen peripherally. No mediastinal mas s or adenopathy is seen. The adrenals are normal. The gallbladder has been removed with clips in the gallbladder fossa. The bones are intact. There is mild linear scarring in the right middle lobe media lly which is unchanged. The lungs are mildly hyperinflated. No consolidation or effusion is seen. The re is no pulmonary nodule mass. There is no effusion or pneumothorax. The bones are intact.IMPRESSION No evidence of a pulmonary embolus.Moderately atherosclerotic thoracic aorta which is unchanged with no aneurysm or dissection.No mediastinal mass or adenopathy.Mild linear scarring along the right midd le lobe with no acute infiltrate or effusion.Previous cholecystectomy which is unchanged.Electronical ly signed by: MODESTO GARCÍA (Sep 24, 2019 17:13:05)
[2019-09-24] MEDS: ZOSYN VIAL 4.5 GRAMS 4.5 G in NS 100 ML IV + SPIKE MINIBAG* 100 ML IV SCH ×2 (17:43→23:08)
[2019-09-24 20:00] LABS: CKMB % 3.1 % (<4); CREATINE KINASE 85 Units/L (26-192); CREATINE KINASE MB 2.6 ng/mL (0-4.0); TROPONIN I < 0.02 ng/mL (0-1.5)
[2019-09-24] MEDS: PULMICORT NEB TX 0.5 MG NEB SCH (20:05)
[2019-09-24 23:05] LABS: CKMB % 2.6 % (<4); CREATINE KINASE 69 Units/L (26-192); CREATINE KINASE MB 1.8 ng/mL (0-4.0); TROPONIN I < 0.02 ng/mL (0-1.5)
[2019-09-25] MEDS ORDERED: NS 250 ML IV 250 ML IV ONE (04:31)
[2019-09-25] MEDS: NS 1/2 1000 ML IV 1,000 ML IV SCH ×3 (06:09→21:51)
[2019-09-25] MEDS: SOLU-Medrol 40 MG VIAL IVP SCH (06:09)
[2019-09-25] MEDS: ZOSYN VIAL 4.5 GRAMS 4.5 G in NS 100 ML IV + SPIKE MINIBAG* 100 ML IV SCH ×3 (06:09→21:53)
[2019-09-25 06:14] LABS: BASOPHILS % (AUTO) 0.3 % (0.2-1.0); HEMATOCRIT 35.8 % (36.0-47.0); HEMOGLOBIN 12.3 g/dL (12.0-16.0); LYMPHOCYTES # (AUTO) 1.4 X10^3/uL (1.3-2.9); LYMPHOCYTES % (AUTO) 22.4 % (21.0-51.0); MEAN CORPUSCULAR HEMOGLOBIN 30.2 pg (27.0-34.0); MEAN CORPUSCULAR HGB CONC 34.4 g/dL (33.0-35.0); MEAN CORPUSCULAR VOLUME 87.8 fL (80.0-100.0); MEAN PLATELET VOLUME 8.9 fL (7.4-11.0); MONOCYTES # (AUTO) 0.2 x10^3/uL (0.3-0.8); MONOCYTES % (AUTO) 2.4 % (0.0-13.0); NEUTROPHILS # (AUTO) 4.7 x10^3/uL (2.2-4.8); NEUTROPHILS % (AUTO) 74.9 % (42.0-75.0); PLATELET COUNT 252 X10^3/uL (150.0-450.0); RED BLOOD COUNT 4.07 X10^6/uL (3.5-5.4); RED CELL DISTRIBUTION WIDTH 14.4 % (11.6-16.5); WHITE BLOOD COUNT 6.2 X10^3/uL (3.6-10.0)
--- NOTE | 2019-09-25 06:17 | RAD ---
HISTORYShortness of breathSTUDYCHEST, 1 VIEWCOMStra[facility] Surgeryuary 2019FINDINGSThe heart is within normal limits in size. The frederick are normal. The lungs are well inflated and free of acute infiltrates. No pleural effusions are identified. Bony thorax is unremarkable.IMPRESSIONNo significant abnormality identifiedElectronically signed by: REYNALDO GASCA (Sep 25, 2019 06:15:50)
[2019-09-25 06:25] LABS: ALANINE AMINOTRANSFERASE 27 Units/L (12-78); ALBUMIN 3.6 g/dL (3.4-5.0); ALKALINE PHOSPHATASE 77 Units/L (46-116); ASPARTATE AMINO TRANSFERASE 17 Units/L (15-37); BLOOD UREA NITROGEN 13 mg/dL (7-18); CALCIUM 8.7 mg/dL (8.5-10.1); CARBON DIOXIDE 24.2 mmol/L (21-32); CHLORIDE 103 mmol/L (98-107); COR NA(FOR HYPERGLY) 140 mmol/L (136-145); CREATININE 0.79 mg/dL (0.55-1.02); SODIUM 138 mmol/L (136-145); TOTAL PROTEIN 7.2 g/dL (6.4-8.2); eGFR NON BLACK RACES > 60 (>60)
[2019-09-25] MEDS: PULMICORT NEB TX 0.5 MG NEB SCH ×2 (08:06→20:25)
[2019-09-25] MEDS: DUONEB 0.5 MG/3 MG (3 mL) NEB SCH ×4 (08:06→20:25)
[2019-09-25] MEDS: VSL#3 PO SCH (09:12)
[2019-09-25] MEDS: LEVAQUIN PREMIX IV 750 MG 750 MG/150 ML BAG IV SCH (09:13)
[2019-09-25] MEDS: ROBITUSSIN DM PO SCH ×4 (09:13→21:53)
--- NOTE | 2019-09-25 10:39 | DR.UPDATE ---
H&P Update History and Physical Update: History and Physical reviewed and patient examined. Changes noted: Yes with the following: IS A 59 YEAR OLD PATIENT OF OURS WHO WAS A DIRECT ADMISSION DUE TO COMPLAINTS OF A PRODUCTIVE COUGH, SHORTNESS OF BREATH, AND WEAKNESS. SHE HAD TAKEN A 10 DAY COURSE OF BACTRIM THAT ENDED ON 09/21/19 WITHOUT IMROVEMENT IN SYMPTOMS. SHE HAD ALSO RECEIVED A ROCEPHIN AND SOLU-MEDROL INJECTION IN THE OFFICE WITHOUT IMPROVEMENT. ON ARRIVAL TO THE HOSPITAL, VITALS WERE 97.6-103-18-99%-151/72. LABS WERE OBTAINED. ABNORMAL LAB VALUES INCLUDE THE FOLLOWING: GLUCOSE 110, TOTAL PROTEIN 8.8. CARDIAC ENZYMES WITHIN NORMAL LIMITS. A CHEST XRAY WAS OBTAINED AND REVEALED: COPD WITH NO ACUTE CARDIOPULMONARY ABNORMALITY. WE OBTAINED A CHEST CTA TO RULE OUT PE. IT REVEALED: No evidence of a pulmonary embolus. Moderately atherosclerotic thoracic aorta which is unchanged with no aneurysm or dissec tion. No mediastinal mass or adenopathy. Mild linear scarring along the right middle lobe with no acute infiltrate or effusion. Previous cholecystectomy which is unchanged. EKG OBTAINED AND REVEALED: SINUS RHYTHM WITH HR 80. BLOOD AND SPUTUM CULTURES WERE SET UP. SHE WAS STARTED ON 1/2NS AT 75 ML/HR, ZOSYN 4.5G IV TID, LEVAQUIN 750MG IV DAILY, RESPIRATORY TX, ROBITUSSIN, AND TUSSIONEX PRN. OTHERWISE, WE PLAN TO FOLLOW UP WITH AM LABS AND CONTINUE TO MONITOR. Prescription drug monitoring program results: PDMP reviewed and no concerns identified H&P Reviewed: Yes Patient was examined?: Yes
[2019-09-25] MEDS ORDERED: NS 1/2 1000 ML IV 1,000 ML IV ONE (17:25)
[2019-09-26] MEDS: ZOSYN VIAL 4.5 GRAMS 4.5 G in NS 100 ML IV + SPIKE MINIBAG* 100 ML IV SCH (05:07)
[2019-09-26 07:21] LABS: BASOPHILS # (AUTO) 0.1 X10^3/uL (0.0-0.1); BASOPHILS % (AUTO) 0.3 % (0.2-1.0); EOSINOPHILS % (AUTO) 0.1 % (0.9-2.9); HEMATOCRIT 37.2 % (36.0-47.0); HEMOGLOBIN 12.5 g/dL (12.0-16.0); LYMPHOCYTES # (AUTO) 3.9 X10^3/uL (1.3-2.9); LYMPHOCYTES % (AUTO) 20.5 % (21.0-51.0); MEAN CORPUSCULAR HGB CONC 33.6 g/dL (33.0-35.0); MEAN CORPUSCULAR VOLUME 89.5 fL (80.0-100.0); MEAN PLATELET VOLUME 9.1 fL (7.4-11.0); MONOCYTES # (AUTO) 0.7 x10^3/uL (0.3-0.8); MONOCYTES % (AUTO) 3.6 % (0.0-13.0); NEUTROPHILS # (AUTO) 14.4 x10^3/uL (2.2-4.8); NEUTROPHILS % (AUTO) 75.5 % (42.0-75.0); PLATELET COUNT 255 X10^3/uL (150.0-450.0); RED BLOOD COUNT 4.16 X10^6/uL (3.5-5.4); RED CELL DISTRIBUTION WIDTH 14.5 % (11.6-16.5)
[2019-09-26 07:27] LABS: ALANINE AMINOTRANSFERASE 24 Units/L (12-78); ALBUMIN 3.5 g/dL (3.4-5.0); ALKALINE PHOSPHATASE 83 Units/L (46-116); ASPARTATE AMINO TRANSFERASE 16 Units/L (15-37); BLOOD UREA NITROGEN 14 mg/dL (7-18); CALCIUM 8.7 mg/dL (8.5-10.1); CARBON DIOXIDE 28.2 mmol/L (21-32); CHLORIDE 107 mmol/L (98-107); COR NA(FOR HYPERGLY) 142 mmol/L (136-145); CREATININE 0.65 mg/dL (0.55-1.02); SODIUM 142 mmol/L (136-145); TOTAL PROTEIN 6.9 g/dL (6.4-8.2); eGFR NON BLACK RACES > 60 (>60)
--- NOTE | 2019-09-26 07:40 | RAD ---
HISTORYShortness of breathSTUDYCHEST, 1 VIEWCOMPARSumma Health Barber[facility] Campusuary 2019FINDINGSThe heart remains within normal limits in size. The frederick are normal. The lungs are free of acute alveolar infiltrates. No pleural effusions are identified. Bony thorax is unremarkable.IMPRESSIONNo significant abnormality identifiedElectronically signed by: REYNALDO GASCA (Sep 26, 2019 07:38:38)
[2019-09-26] MEDS ORDERED: ZESTRIL TAB 20 MG ONE (08:08)
[2019-09-26] MEDS: LEVAQUIN PREMIX IV 750 MG 750 MG/150 ML BAG IV SCH (08:54)
[2019-09-26] MEDS: ROBITUSSIN DM PO SCH (08:54)
[2019-09-26] MEDS: ZESTRIL TAB 20 MG PO SCH ×2 (08:54→08:57)
[2019-09-26] MEDS: VSL#3 PO SCH (08:55)
[2019-09-26] MEDS ORDERED: COZAAR PO SCH (09:00)
[2019-09-26] MEDS ORDERED: ASPIRIN EC 81 MG PO SCH (09:00)
[2019-09-26] MEDS ORDERED: ZOCOR TAB 20 MG PO SCH (09:00)
[2019-09-26] MEDS ORDERED: PriLOSEC PO SCH (09:00)
[2019-09-26] MEDS: DUONEB 0.5 MG/3 MG (3 mL) NEB SCH (09:06)
[2019-09-26] MEDS: PULMICORT NEB TX 0.5 MG NEB SCH (09:06)
[2019-09-26 12:30] VITALS: BP 141/61
== END 2019-09-26 12:35 | disposition home or self-care (01) ==
LOC: MED/SURG 13:03 → INTOOBSV 13:03
PROVIDERS: ADMIT Internal Medicine; ATTEND Internal Medicine
DX: Z79.899 Other long term (current) drug therapy; J18.8 Other pneumonia, unspecified organism; J44.1 Chronic obstructive pulmonary disease with (acute) exacerbation; R06.02 Shortness of breath; I10 Essential (primary) hypertension; R94.31 Abnormal electrocardiogram [ECG] [EKG]; R53.1 Weakness
CPT/HCPCS: 36415; 71010; 71020; 71045; 71046; 71275; 80053; 82550; 82553; 84484; 85025; 87040; 87070; 87205; 93005; 94640; 94760; 96360; 96361; 96374; A4222; G0378; J1956; J2543; J2920; J7050; J7620; J7626